=== PATIENT | male | born 1950 ===

== ENCOUNTER → 2023-01-19 09:40 | Outpatient (BNVA) | payer MEDICARE, SELFPAY | PROVIDERS: PCP Internal Medicine; Referring Provider Internal Medicine; Visit Provider Physician Assistant Surgical | DX: J47.9 Bronchiectasis, uncomplicated (principal); J84.89 Other specified interstitial pulmonary diseases; J64 Unspecified pneumoconiosis; J45.51 Severe persistent asthma with (acute) exacerbation; R91.8 Other nonspecific abnormal finding of lung field; I50.32 Chronic diastolic (congestive) heart failure; N18.32 Chronic kidney disease, stage 3b | CPT/HCPCS: 36415; 76604; 94618; 99215; G2212 ==

== ENCOUNTER 2023-01-19 12:40 | Outpatient (REF) | payer MEDICARE, SELFPAY ==
[2023-01-20 08:57] LABS: IgE 21 IU/mL (<158)
== END 2023-01-19 12:41 | disposition home or self-care (01) ==
LOC: LBN 12:40
PROVIDERS: PCP Internal Medicine; Visit Provider Physician Assistant Surgical
DX: J45.909 Unspecified asthma, uncomplicated (principal); R06.09 Other forms of dyspnea
CPT/HCPCS: 82785